=== PATIENT | female | born 1995 | race Caucasian/White ===

== ENCOUNTER 2017-02-11 20:42 | Emergency (ER) | payer OTHER ==
--- NOTE | 2017-02-11 21:27 | ER Document Report ---
ED Medical Screen (RME) - General Stated Complaint: HEADACHE/EAR PAIN Notes: 21 yo female c/o headace and right ear pain x 3 days. frontal headache, throbbing pain. no fever. no neck pain. no relief with Tylenol. no hx/o similar headache. no recent illness. 29 wks pregant. G1. no related complaints OB - women's health Physical Exam - Vital signs Vitals: Temp Pulse Resp BP Pulse Ox 98.6 F 98 H 22 131/74 H 99 02/11/17 21:09 02/11/17 21:09 02/11/17 21:09 02/11/17 21:09 02/11/17 21:09 Course - Vital Signs Vital signs: Temp Pulse Resp BP Pulse Ox 98.6 F 98 H 22 131/74 H 99 02/11/17 21:09 02/11/17 21:09 02/11/17 21:09 02/11/17 21:09 02/11/17 21:09
[2017-02-11 21:50] LABS: APPEARANCE,URINE CLEAR; BILIRUBIN,URINE NEGATIVE (NEGATIVE); GLUCOSE, URINE NEGATIVE (NEGATIVE); KETONES,URINE NEGATIVE (NEGATIVE); LEUKOCYTE ESTERASE,URINE NEGATIVE (NEGATIVE); NITRITE,URINE NEGATIVE (NEGATIVE); PROTEIN,URINE NEGATIVE (NEGATIVE); URINE SPECIFIC GRAVITY 1.004; UROBILINOGEN,URINE NEGATIVE mg/dL (<2.0)
--- NOTE | 2017-02-12 01:33 | ER Document Report ---
ED Headache - General Time seen by provider: 01:35 Mode of Arrival: Ambulatory Information source: Patient TRAVEL OUTSIDE OF THE [place] IN LAST 30 DAYS: No - HPI Patient complains to provider of: Headache, Facial pain Onset: Other - see HPI note - General Chief Complaint: Headache >24 hrs old Stated Complaint: HEADACHE/EAR PAIN Notes: Patient is a 21 year old female presenting to the ED for a headache. Patient is 29 weeks . Patient states that her right ear has pain, throbbing, and pressure that is exacerbated with bending forward. Patient denies any trauma or injury to her head. Patient denies any drainage, sore throat, fever, chills, or cough. Patient denies any history of headaches. Patient has no known allergies. (FRANSISCA LE) - Related Data Allergies/Adverse Reactions: No Known Allergies Allergy (Unverified 02/11/17 21:26) Past Medical History - General Information source: Patient - Social History Smoking Status: Never Smoker Cigarette use (# per day): No Chew tobacco use (# tins/day): No Frequency of alcohol use: None Drug Abuse: None Family History: None Patient has suicidal ideation: No Patient has homicidal ideation: No Review of Systems - Review of Systems Constitutional: No symptoms reported EENT: See HPI, Ear pain Cardiovascular: No symptoms reported Respiratory: No symptoms reported Gastrointestinal: No symptoms reported Genitourinary: No symptoms reported Female Genitourinary: No symptoms reported Musculoskeletal: No symptoms reported Skin: No symptoms reported Hematologic/Lymphatic: No symptoms reported Neurological/Psychological: See HPI, Headaches -: Yes All other systems reviewed and negative Physical Exam - Vital signs Interpretation: Normal - General General appearance: Appears well, Alert In distress: Mild - HEENT Head: Normocephalic, Atraumatic Eyes: Normal Pupils: PERRL Mucous membranes: Moist - Respiratory Respiratory status: No respiratory distress Chest status: Nontender Breath sounds: Normal Chest palpation: Normal - Cardiovascular Rhythm: Regular Heart sounds: Normal auscultation Murmur: No - Abdominal Inspection: Normal Distension: No distension Bowel sounds: Normal Tenderness: Nontender Organomegaly: No organomegaly - Back Back: Normal, Nontender - Extremities General upper extremity: Normal inspection, Normal ROM, Normal strength General lower extremity: Normal inspection, Normal ROM, Normal strength - Neurological Neuro grossly intact: Yes Cognition: Normal Orientation: AAOx4 Curly Coma Scale Eye Opening: Spontaneous [place] Coma Scale Verbal: Oriented Curly Coma Scale Motor: Obeys Commands [place] Coma Scale Total: 15 Speech: Normal Sensory: Normal - Psychological Associated symptoms: Normal affect, Normal mood - Skin Skin Temperature: Warm Skin Moisture: Dry Course - Re-evaluation Re-evalutation: 02/12/17 02:02 I personally performed the services described in the documentation, reviewed and edited the documentation which was dictated to my scribe in my presence, and it accurately records my words and actions. Patient presents emergency department 29 weeks with a chief complaint of congestion. No headache no blurry vision no double vision or neck pain no difficulty breathing swallowing negative HEENT examination heart lungs abdomen soft nontender no acute findings she is never any abdominal pain vaginal bleeding or discharge. Told her very limited what we can use during Nasonex is a category C total Reglan start on some Claritin which is a category B but not the decongestant. She verbalizes understanding of this and doesn't want to take anything they could harm the baby. She is discharged prescription for Claritin follow primary care physician to 3 days and discussed reasons For ed return sooner ([employer]) - Vital Signs Vital signs: Temp Pulse Resp BP Pulse Ox 97.4 F 96 H 20 113/62 96 02/12/17 02:23 02/12/17 02:23 02/12/17 02:23 02/12/17 02:23 02/12/17 02:23 Discharge - Discharge Clinical Impression: Congestion of right ear Condition: Stable Disposition: HOME, SELF-CARE Additional Instructions: Upper Respiratory Illness/ congestion You have a viral infection of the respiratory passages -- a "cold." This common infection causes nasal congestion, drainage, and often sore throat and cough. It is caused by a virus and is highly contagious. The disease usually lasts a week or more, though the worst symptoms are usually over in 3 or 4 days. There is no "cure" for the viral infection -- it must run its course. If there is a complication, such as bacterial infection in the nose, sinuses, middle ear, or bronchial tubes, antibiotics may be required, but antibiotics won 't affect the virus. If you smoke, you should STOP!! Drink plenty of fluids. A humidifier may help. An expectorant medication or decongestant may make you more comfortable. Use acetaminophen or ibuprofen for fever or aches. See the doctor if fever persists over two or three days, if there is any significant worsening of your symptoms, or if you simply fail to improve as expected. Follow-up with your Primary care physician to 3 days return for increasing worsening or new symptoms Prescriptions: Loratadine [Claritin] 10 mg PO DAILY #12 capsule Scribe Documentation - Scribe Written by Naomy:: Fransisca Le 02/12/17 7:30 acting as scribe for :: Laron
[2017-02-12 02:24] VITALS: BP 113/62
== END 2017-02-12 02:24 | disposition home or self-care (01) ==
LOC: ER 20:42
DX: O26.893 Other specified pregnancy related conditions, third trimester (principal); H93.8X1 Other specified disorders of right ear; Z3A.29 29 weeks gestation of pregnancy
CPT/HCPCS: 81001; 99283

== ENCOUNTER 2017-05-03 00:29 | Outpatient (CLI) | payer OTHER ==
[2017-05-03 01:17] LABS: APPEARANCE,URINE CLEAR; BILIRUBIN,URINE NEGATIVE (NEGATIVE); GLUCOSE, URINE NEGATIVE (NEGATIVE); KETONES,URINE NEGATIVE (NEGATIVE); LEUKOCYTE ESTERASE,URINE NEGATIVE (NEGATIVE); NITRITE,URINE NEGATIVE (NEGATIVE); PROTEIN,URINE NEGATIVE (NEGATIVE); URINE SPECIFIC GRAVITY 1.002; UROBILINOGEN,URINE NEGATIVE mg/dL (<2.0)
[2017-05-03 01:23] LABS: AMNISURE (ROM) NEGATIVE (NEGATIVE)
[2017-05-03 02:11] LABS: URINE BARBITURATES SCREEN NEGATIVE; URINE METHADONE SCREEN NEGATIVE; URINE OPIATES LOW NEGATIVE; URINE PHENCYCLIDINE SCREEN NEGATIVE
== END 2017-05-03 02:59 | disposition home or self-care (01) ==
LOC: LC 00:29
PROVIDERS: ATTEND Obstetrics & Gynecology
PROC: 4A1HXCZ Monitoring of Products of Conception, Cardiac Rate, External Approach (ICD-10-PCS; principal; 2017-05-03)
DX: O47.1 False labor at or after 37 completed weeks of gestation (principal); Z3A.40 40 weeks gestation of pregnancy
CPT/HCPCS: 59025; 80307; 81005; 84112

== ENCOUNTER 2017-05-06 16:04 | Outpatient (CLI) | payer OTHER ==
--- NOTE | 2017-05-06 16:12 | Non Stress Test Report ---
Non Stress Test Datetime Report Generated by CPN: 05/06/2017 16:12 DEMOGRAPHIC Test Number: 1 EGA NST: 40.3 INDICATION Indication for Study: Ordered by Provider MONITORING Monitor Explained: Monitor Explained; Test Explained; Patient Verbalized Understanding Time on Monitor: 05/03/2017 01:17 Time off Monitor: 05/03/2017 02:50 NST Duration: 93 NST INTERVENTIONS NST Interventions: PO Hydration Physician Notified NST: blum BABY A: [id number] BABY A Movement : Present Contraction Frequency : irregular FHR Baseline : 120 Accelerations : 15X15 Decelerations : None Variability : Moderate 6-25bpm NST Review: Meets Criteria for Reactive NST NST Review and Verified By : Rose Marie Lazcano RN NST Results: Reactive NST REPORT Report Trigger: Send Report
--- NOTE | 2017-05-07 20:49 | Non Stress Test Report ---
Non Stress Test Datetime Report Generated by CPN: 05/07/2017 20:48 DEMOGRAPHIC EGA NST: 41.0 INDICATION Indication for Study: Ordered by Provider MONITORING Monitor Explained: Monitor Explained; Test Explained; Patient Verbalized Understanding Time on Monitor: 05/07/2017 16:16 Time off Monitor: 05/07/2017 16:39 NST Duration: 23 NST INTERVENTIONS NST Interventions: PO Hydration; Reposition Patient Physician Notified NST: C Faye CNM BABY A: [id number] BABY A Movement : Present Contraction Frequency : 0 FHR Baseline : 125 Accelerations : 15X15 Decelerations : None Variability : Moderate 6-25bpm NST Review: Meets Criteria for Reactive NST NST Review and Verified By : Jose Bermudez RNC NST Results: Reactive NST REPORT Report Trigger: Send Report
== END 2017-05-06 16:45 | disposition home or self-care (01) ==
LOC: LC 16:04
PROVIDERS: ATTEND Obstetrics & Gynecology
PROC: 4A1HXCZ Monitoring of Products of Conception, Cardiac Rate, External Approach (ICD-10-PCS; principal; 2017-05-06)
DX: O48.0 Post-term pregnancy (principal); Z3A.41 41 weeks gestation of pregnancy
CPT/HCPCS: 59025

== ENCOUNTER 2017-05-07 21:09 | Inpatient (IN) | payer OTHER ==
[2017-05-07] MEDS ORDERED: RINGERS SOLUTION,LACTATED 1,000 ML IV PRN (21:55)
[2017-05-07] MEDS ORDERED: OXYTOCIN/NORMAL SALINE 1,000 ML IV PRN (21:55)
[2017-05-07] MEDS ORDERED: RINGERS SOLUTION,LACTATED 300 ML IV ONE (21:55)
[2017-05-07] MEDS ORDERED: DINOPROSTONE 10 MG VAGINAL INSERT.SR PV PRN (21:55)
[2017-05-07] MEDS ORDERED: DINOPROSTONE 10 MG VAGINAL INSERT.SR ONE (22:15)
[2017-05-07 22:29] LABS: ABSOLUTE EOSINOPHILS # (AUTO) 0.1 10^3/uL (0.0-0.6); ABSOLUTE LYMPHOCYTES (AUTO) 1.8 10^3/uL (0.5-4.7); ABSOLUTE MONOCYTES (AUTO) 0.4 10^3/uL (0.1-1.4); ABSOLUTE NEUT (AUTO) 3.3 10^3/uL (1.7-8.2); BASOPHILS % (AUTO) 0.5 % (0-2); EOSINOPHILS % (AUTO) 1.2 % (0-6); HEMATOCRIT 34.2 % (36.0-47.0); HEMOGLOBIN 11.1 g/dL (12.0-15.5); HGB HCT DIFFERENCE -0.9; MEAN CORPUSCULAR HEMOGLOBIN 27.4 pg (27.0-33.4); MEAN CORPUSCULAR HGB CONC 32.6 g/dL (32.0-36.0); MEAN CORPUSCULAR VOLUME 84 fl (80-97); MONOCYTES % (AUTO) 7.5 % (3-13); RED BLOOD COUNT 4.07 10^6/uL (3.72-5.28); RED CELL DISTRIBUTION WIDTH 18.7 % (11.5-14.0); SEGMENTED NEUTROPHILS % (AUTO) 58.8 % (42-78); WHITE BLOOD COUNT 5.7 10^3/uL (4.0-10.5)
[2017-05-07 22:34] LABS: APPEARANCE,URINE SLIGHTLY-CLOUDY; BILIRUBIN,URINE NEGATIVE (NEGATIVE); GLUCOSE, URINE NEGATIVE (NEGATIVE); KETONES,URINE NEGATIVE (NEGATIVE); LEUKOCYTE ESTERASE,URINE LARGE (NEGATIVE); NITRITE,URINE NEGATIVE (NEGATIVE); PROTEIN,URINE NEGATIVE (NEGATIVE); URINE SPECIFIC GRAVITY 1.012; UROBILINOGEN,URINE NEGATIVE mg/dL (<2.0)
[2017-05-07 22:53] LABS: URINE BARBITURATES SCREEN NEGATIVE; URINE METHADONE SCREEN NEGATIVE; URINE OPIATES LOW NEGATIVE; URINE PHENCYCLIDINE SCREEN NEGATIVE
[2017-05-08] MEDS ORDERED: OXYTOCIN/NORMAL SALINE 20 UNIT/1,000 ML RTUINJ ONE (11:01)
[2017-05-08] MEDS ORDERED: LIDOCAINE 1% INJ-PF (10 MG/ML) 30 ML SDV ONE (11:01)
[2017-05-08] MEDS ORDERED: MISOPROSTOL 0.2 MG TABLET ONE (11:01)
[2017-05-08] MEDS ORDERED: NALBUPHINE HCL INJ 10 MG/1 ML AMPULE ONE (13:26)
[2017-05-08] MEDS ORDERED: EPHEDRINE SULFATE INJ 50 MG/1 ML AMPULE ONE (14:45)
[2017-05-08] MEDS ORDERED: FENTANYL CITRATE INJ/PF 100 MCG/2 ML AMPUL ONE (14:45)
[2017-05-08] MEDS ORDERED: FENTANYL/BUPIVACAINE/NS/PF 200 MCG/100 ML RTUINJ EPI ONE ×2 (14:46→22:39)
[2017-05-08] MEDS ORDERED: BUPIVACAINE HCL 0.25 % INJ/PF (2.5 MG/1 ML) 30 ML VIAL ONE (14:46)
[2017-05-08] MEDS ORDERED: PHENYLEPHRINE HCL INJ/PF 10 MG/1 ML SDV ONE (14:46)
--- NOTE | 2017-05-08 14:49 | L&D Progress Notes ---
PROGRESS NOTES Datetime Report Generated by CPN: 05/08/2017 14:49 PROGRESS NOTE Impression: Reassuring Heart Rate Procedures: Scalp Electrode Plan: Induction Comment: Uncomfortable after nubabin would like epidural. small change in SVE Continue pitocin May have epidural. VAGINAL EXAM Dilatation: 3 Dilatation: 2 Effacement: 80 Effacement: 50 Station: 0 Station: -3 Contractions: irregular MEMBRANES Membranes: Ruptured Membranes: Intact Amniotic Fluid Color: Clear FETUS A FHR - Baseline: 120 Monitoring: External US Variability: Moderate 6-25bpm Accelerations: 15X15 Decelerations: None FHR Category: Category I : 41.1 SIGNATURE SIGNATURE: [id number] SIGNATURE: [id number] SIGNATURE: [id number] Assignment: Marisela Jackson MD Signature: with User ID: [email or web address] : with User ID: [email or web address]
--- NOTE | 2017-05-08 17:49 | L&D Progress Notes ---
PROGRESS NOTES Datetime Report Generated by CPN: 05/08/2017 17:49 PROGRESS NOTE Impression: Reassuring Heart Rate Procedures: Intrauterine Pressure Catheter; Sterile Vag Exam Plan: Continue Present Management; Induction Informed Consent Obtained: Vaginal Delivery Vital Signs : Reviewed Comment: Comfortable with epdiural IUPC placed without difficulty Pitocin at 20 mu Continue present mgmt VAGINAL EXAM Dilatation: 5 Effacement: 80 Station: -1 Contractions: 2-4 MEMBRANES Membranes: Ruptured Amniotic Fluid Color: Clear FETUS A FHR - Baseline: 125 Monitoring: External US Variability: Moderate 6-25bpm Accelerations: 15X15 Decelerations: None FHR Category: Category I FETUS C SIGNATURE: [id number];[id number] Assignment: Marisela Jackson MD Signature: with User ID: [email or web address] : with User ID: [email or web address]
[2017-05-08] MEDS ORDERED: DEXTROSE 5%-LACTATED RINGERS 1,000 ML IV PRN (20:49)
[2017-05-08] MEDS ORDERED: LIDOCAINE 2%/EPINEPHRINE INJ 20 ML VIAL ONE (22:39)
[2017-05-08] MEDS ORDERED: SODIUM BICARBONATE 8.4% INJ 50 MEQ/50 ML DISP.SYRIN ONE (22:39)
--- NOTE | 2017-05-08 22:50 | L&D Progress Notes ---
PROGRESS NOTES Datetime Report Generated by CPN: 05/08/2017 22:50 PROGRESS NOTE Impression: Normal Progression of Labor; Reassuring Heart Rate Procedures: Scalp Electrode Plan: Continue Present Management; Induction Informed Consent Obtained: Vaginal Delivery; Induction of Labor; Risks, Benefits and Alternatives Discussed Vital Signs : Reviewed; Within Normal Limits Comment: Decel likely due to descent. maternal position change and Pitocin discontinued and FSE placed with resolution of FHR. Continue to monitor. Restart pitocin and anticipate . VAGINAL EXAM Dilatation: 8 Effacement: 90 Station: 1 FETUS A FHR - Baseline: 135 Monitoring: Internal Scalp Electrode Variability: Moderate 6-25bpm Accelerations: 15X15 Decelerations: Variable FHR Category: Category II FETUS C SIGNATURE: [id number] Signature: with User ID: [email or web address]
[2017-05-09] MEDS ORDERED: TERBUTALINE SULFATE INJ/PF 1 MG/1 ML SDV ONE (01:44)
[2017-05-09] MEDS ORDERED: ACETAMINOPHEN 325 MG TABLET PO ONE (01:45)
[2017-05-09] MEDS ORDERED: AMPICILLIN SOD INJ 2 GM VIAL IV ONE (01:45)
[2017-05-09] MEDS ORDERED: GENTAMICIN SULFATE INJ 80 MG/2 ML VIAL IV ONE (01:48)
[2017-05-09] MEDS ORDERED: ACETAMINOPHEN 325 MG TABLET ONE (01:51)
[2017-05-09] MEDS ORDERED: AMPICILLIN SOD INJ 2 GM VIAL ONE (03:08)
[2017-05-09] MEDS ORDERED: GENTAMICIN SULFATE INJ 80 MG/2 ML VIAL ONE (03:08)
[2017-05-09] MEDS ORDERED: OXYTOCIN/NORMAL SALINE 20 UNIT/1,000 ML RTUINJ ONE (04:57)
[2017-05-09] MEDS ORDERED: ACETAMINOPHEN WITH CODEINE #3 TABLET PO PRN ×2 (04:59)
[2017-05-09] MEDS ORDERED: GLYCERIN/WITCH HAZEL LEAF 1 EACH MED..PAD TP PRN (04:59)
[2017-05-09] MEDS ORDERED: DIPH/PERTUSS(ACELL)/TETANUS VAC/PF 0.5 ML SYR (>=10YO) IM PRN (04:59)
[2017-05-09] MEDS ORDERED: DIPHENHYDRAMINE HCL 25 MG CAPSULE PO PRN (04:59)
[2017-05-09] MEDS ORDERED: PROMETHAZINE HCL INJ 25 MG/1 ML VIAL IV PRN (04:59)
[2017-05-09] MEDS ORDERED: NA PHOS,M-B/NA PHOS,DI-BA (ADULT) 133 ML ENEMA PR PRN (04:59)
[2017-05-09] MEDS ORDERED: DIBUCAINE 1% OINTMENT 28 GM TP PRN (04:59)
[2017-05-09] MEDS ORDERED: MEASLES,MUMPS&RUBELLA VACC/PF 0.5 ML VIAL SUBCUT PRN (04:59)
[2017-05-09] MEDS ORDERED: ZOLPIDEM TARTRATE 5 MG TABLET PO PRN (04:59)
[2017-05-09] MEDS ORDERED: PSEUDOEPHEDRINE HCL 30 MG TABLET PO PRN (04:59)
[2017-05-09] MEDS ORDERED: OXYTOCIN/NORMAL SALINE 1,000 ML IV PRN (04:59)
[2017-05-09] MEDS ORDERED: PROMETHAZINE HCL 25 MG TABLET PO PRN (04:59)
[2017-05-09] MEDS ORDERED: BENZOCAINE/MENTHOL AEROSOL SPRAY 56 ML TOP PRN (04:59)
[2017-05-09] MEDS ORDERED: MAGNESIUM HYDROXIDE SUSP 30 ML UDCUP PO PRN (04:59)
[2017-05-09] MEDS ORDERED: ACETAMINOPHEN 650 MG SUPP.RECT PR PRN (04:59)
[2017-05-09] MEDS ORDERED: PROMETHAZINE HCL 25 MG SUPP.RECT PR PRN (04:59)
--- NOTE | 2017-05-09 05:44 | Delivery Summary ---
Del Sum A-C Datetime Report Generated by CPN: 05/09/2017 05:43 DELIVERY PERSONNEL DELIVERY PERSONNEL: [id number] Delivery Doctor:: Marsiela Jackson MD Labor and Delivery Nurse:: Gracie Fajardo RNweight control engineer Nurse:: Janice Rodarte RN Nursery Nurse:: Peggy Schreiber RN Flight Crew Ordnanceman/SEED CLEANING MACHINE OPERATOR: Denise Gutierres ST MATERNAL INFORMATION Delivery Anesthesia: Epidural Medications After Delivery: Pitocin Bolus-Please Comment Meds After Delivery Comment: Pitocin 20 units/1000 mL NS 1000mcg cytotec IA Estimated Blood Loss (ml): 400 Maternal Complications: Chorioamnionitis Provider Comments: Dx with chorio prior to delivery and Amp/Gent ordered and given. VFI delivered in BETH presentation. Loose nuchal cord easily reduced. Shoulders and body delivered w/o difficulty. Cord doubly clamped and Cut. Placenta delivered intact spontaneously. FF at U but intermittent atony therefore 1000 mcg of misoprostol given. Good hemostasis post repair. APgars 8/9. Weight pending at the time of delivery. LABOR SUMMARY EDC: 04/30/2017 00:00 No. Babies in Womb: 1 Attempted: No Labor Anesthesia: Epidural LABOR INFORMATION Reason for Induction: Post Dates Onset of Labor: 05/08/2017 14:39 Complete Dilatation: 05/09/2017 03:31 Cervical Ripening Agents: Cervidil Oxytocin: Augmentation Group B Beta Strep: negative Antibiotics # of Doses: 0 Antibiotics Time of Last Dose: n/a Steroids Given: None Reason Steroids Not Administered: Not Applicable MEMBRANES Membranes Rupture Method: Artificial Rupture of Membranes: 05/08/2017 10:00 Length of Rupture (hr): 18.17 Amniotic Fluid Color: Clear Amniotic Fluid Amount: Small Amniotic Fluid Odor: Normal STAGES OF LABOR Stage 1 hr: 12 Stage 1 min: 52 Stage 2 hr: 0 Stage 2 min: 39 Stage 3 hr: 0 Stage 3 min: 4 Total Time in Labor hr: 13 Total Time in Labor min: 35 VAGINAL DELIVERY Episiotomy: None Laceration Extension: First Degree Laceration Type: Vaginal Laceration Repair: Yes Laceration Repair Note: Bilateral Labial and 1st degree midline laceration repaired with good hemostasis Sponge Count Correct: Yes Sharps Count Correct: Yes CSECTION DELIVERY Primary Indication: N/A Secondary Indication: N/A CSection Incidence: N/A Labor: N/A Elective: N/A CSection Incision: N/A BABY A INFORMATION Infant Delivery Date/Time: 05/09/2017 04:10 Method of Delivery: Vaginal Born in Route : No : N/A Forceps: N/A Vacuum Extraction: N/A Shoulder Dystocia : No PRESENTATION/POSITION BABY A Presentation: Cephalic Cephalic Presentation: Vertex Vertex Position: Occipital Anterior Breech Presentation: N/A PLACENTA INFORMATION BABY A Placenta Delivery Time : 05/09/2017 04:14 Placenta Method of Delivery: Spontaneous Placenta Status: Delivered SCORES BABY A Heart Rate 1 min: >100 bpm Resp Effort 1 min: Good Cry Reflex Irritability 1 min: Cough or Sneeze or Pulls Away Muscle Tone 1 min: Active Motion Color 1 min: Blue/Pale Resuscitation Effort 1 min: N/A SCORE 1 MIN: 8 Heart Rate 5 min: >100 bpm Resp Effort 5 min: Good Cry Reflex Irritability 5 min: Cough or Sneeze or Pulls Away Muscle Tone 5 min: Active Motion Color 5 min: Body [place], Extremities Blue SCORE 5 MIN: 9 INFANT INFORMATION BABY A Gestational Age at Delivery: 41.2 Gestational Status: Late Term- 41- 41.6 Weeks Infant Outcome : Liveborn Infant Condition : Stable Infant Sex: Female IDENTIFICATION BABY A Infant Verification Date/Time: 05/09/2017 04:19 ID Band Number: [id number] Mother's Name Verified: Yes Infant RN Verifying : KFermin Acostaco, RN Additional Verifying Personnel: Chacho Fajardo RN WEIGHT/LENGTH BABY A Birthweight (gm): 3300 Weight (lb): 7 Infant Weight (oz): 4 Infant Length (in): 20.00 Length (cm): 50.80 CORD INFORMATION BABY A No. Cord Vessels: 3 Nuchal Cord : Around Neck x1, Loose Cord Blood Taken: Yes-For Storage (Mom's Blood type +) Suction: Mouth; Nose ASSESSMENT BABY A Complications: Multiple Late Decels; Multiple Variable Decels; Other Infant Complications- Other: Prolonged decels, loose nuchal x1 Physical Findings at Delivery: Puncture Wound from Scalp Electrode Respirations: Appears Normal Skin to Skin: Yes Skin to Skin Time (min): 40 Pizza Delivery/ALS Called : No Care By: Jose Schreiber RN Transferred To: Remains with Mother SIGNATURES Signature: with User ID: [email or web address]
[2017-05-09] MEDS ORDERED: AMPICILLIN SOD INJ 1 GM VIAL IV SCH ×2 (08:00→15:00)
--- NOTE | 2017-05-09 08:26 | Admission Physical ---
Datetime Report Generated by CPN: 05/09/2017 08:26 CURRENT ADMISSION Chief Complaint: Scheduled Induction of Labor Indication for Induction: Post Dates Admit Plan: Admit to Unit; Initiate Labor Induction Protocol ALLERGIES Medication Allergies: No Medication Allergies: No Known Allergies (05/07/2017) Medication Allergies: No Known Allergies (05/06/2017) Medication Allergies: No Known Allergies (02/11/2017) Latex: No Latex Allergies Food Allergies: none Environmental Allergies: none OBSTETRICAL HISTORY EDC: 04/30/2017 00:00 : 1 Para: 0 Term: 0 : 0 SAB: 0 IAB: 0 Ectopic: 0 Livin Cesareans: 0 VBACs: 0 Multiple Births: 0 Gestational Diabetes: No Rh Sensitization: No Incompetent Cervix: No DENISA: No Infertility: No ART Treatment: No Uterine Anomaly: No IUGR: No Hx Previous C/S: No Macrosomia: No Hx Loss/Stillborn: No PIH: No Hx : No Placenta Previa/Abruption: No Depression/PP Depression: No PTL/PROM: No Post Hemorrhage: No Current Procedures: Ultrasound; NST Obstetrical History Comments: G1: Current SEE RECORDS Alcohol: No Marijuana : No Cocaine: No Other Illicit Drugs: No Cigarettes: Never Smoker. [id number] MEDICAL HISTORY Diabetes: No Blood Transfusion: No Pulmonary Disease (Asthma, TB): No Breast Disease: No Hypertension: No Tongue Carrier Surgery: No Heart Disease: No Hosp/Surgery: No Autoimmune Disorder: No Anesthetic Complications: No Kidney Disease: No Abnormal Pap Smear: No Neuro/Epilepsy: No Psychiatric Disorders: No Other Medical Diseases: No Hepatitis/Liver Disease: No Significant Family History: No Varicosities/Phlebitis: No Trauma/Violence : No Thyroid Dysfunction: No INFECTIOUS HISTORY Gonorrhea: No Genital Herpes: No Chlamydia: No Tuberculosis: No Syphilis: No Hepatitis: No HIV/AIDS Exposure: No Rash or Viral Illness: No HPV: No PHYSICAL EXAM General: Normal HEENT: Normal Neurologic: Normal Thyroid: Deferred Heart: Normal Lungs: Normal Breast: Deferred Back: Normal Abdomen: Normal Genitourinary Exam: Normal Extremities: Normal DTRs: Normal Pelvic Type: Adequate Vital Signs: Reviewed; Within Normal Limits VAGINAL EXAM Dilatation: 8 Dilatation: 5 Dilatation: 3 Dilatation: 2 Effacement: 90 Effacement: 80 Effacement: 80 Effacement: 50 Station: 1 Station: -1 Station: 0 Station: -3 Contraction Comments: 2-4 Contraction Comments: irregular MEMBRANES Membranes: Ruptured Membranes: Ruptured Membranes: Intact Amniotic Fluid Color: Clear Amniotic Fluid Color: Clear FETUS A EGA: 41.1 Monitoring: External US FHR- Baseline: 140 Variability: Moderate 6-25bpm Accelerations: 15X15 Decelerations: None FHR Category: Category I PLANS FOR LABOR AND DELIVERY Labor and Delivery: None; Cord Blood Banking Pain Management: Epidural Feeding Preference: Breast Benefit of Breast Feed Discussed: Yes Circumcision: N/A INFORMED CONSENT Informed Consent Obtained: Vaginal Delivery; Induction of Labor; Risks, Benefits and Alternatives Discussed Informed Consent Obtained: Vaginal Delivery Signature: with User ID: Gianluca Signature: with User ID: [email or web address] : with User ID: [email or web address]
[2017-05-09] MEDS ORDERED: GENTAMICIN SULFATE INJ 80 MG/2 ML VIAL IV SCH ×2 (10:00)
[2017-05-09] MEDS: SENNOSIDES/DOCUSATE 8.6-50 MG 1 EACH TABLET PO SCH (11:13)
[2017-05-09] MEDS: PRENATAL VITAMIN W-O CA NO5/FE FUMARATE/FA CAPSULE PO SCH (11:14)
[2017-05-09] MEDS: FAMOTIDINE 20 MG TABLET PO SCH ×2 (11:15→21:54)
[2017-05-09] MEDS: DOCUSATE SODIUM 100 MG CAPSULE PO SCH ×2 (11:15→18:13)
[2017-05-09] MEDS: FERROUS SULFATE 325 MG TABLET PO SCH ×2 (11:15→18:13)
[2017-05-09] MEDS: GENTAMICIN SULFATE IV SCH ×2 (13:55→21:55)
[2017-05-09] MEDS: WATER IV SCH ×2 (13:55→21:55)
[2017-05-09] MEDS: DEXTROSE 5% IV SCH ×2 (13:55→21:55)
[2017-05-09] MEDS: IBUPROFEN 800 MG TABLET PO SCH ×2 (14:34→21:54)
[2017-05-09] MEDS: AMPICILLIN SODIUM 1 GM in NORMAL SALINE 50 ML IV SCH ×2 (15:17→20:52)
[2017-05-10] MEDS: AMPICILLIN SODIUM 1 GM in NORMAL SALINE 50 ML IV SCH ×2 (02:41→09:11)
[2017-05-10] MEDS: IBUPROFEN 800 MG TABLET PO SCH ×3 (05:01→22:28)
[2017-05-10] MEDS: GENTAMICIN SULFATE IV SCH (05:02)
[2017-05-10] MEDS: DEXTROSE 5% IV SCH (05:02)
[2017-05-10] MEDS: WATER IV SCH (05:02)
[2017-05-10 08:38] LABS: HEMATOCRIT 28.3 % (36.0-47.0); HEMOGLOBIN 9.3 g/dL (12.0-15.5); HGB HCT DIFFERENCE -0.4; MEAN CORPUSCULAR HEMOGLOBIN 27.3 pg (27.0-33.4); MEAN CORPUSCULAR HGB CONC 32.9 g/dL (32.0-36.0); MEAN CORPUSCULAR VOLUME 83 fl (80-97); RED BLOOD COUNT 3.41 10^6/uL (3.72-5.28); RED CELL DISTRIBUTION WIDTH 19.1 % (11.5-14.0); WHITE BLOOD COUNT 8.2 10^3/uL (4.0-10.5)
--- NOTE | 2017-05-10 08:54 | PDOC PROGRESS REPORT ---
Subjective-OB Subjective: Post Delivery Day: 1 21 year old. Denies any needs at this time, resting, voiding without difficulty , tolerating diet, voiding without difficulty. Physical Exam (OB) Vital Signs: Temp Pulse Resp BP Pulse Ox 98.2 F 86 16 112/67 97 05/09/17 20:45 05/09/17 20:45 05/09/17 20:45 05/09/17 20:45 05/09/17 20:45 Intake & Output 05/09/17 05/10/17 05/11/17 06:59 06:59 06:59 Intake Total 780 Balance 780 - Lochia Lochia Amount: Scant < 10 ml Lochia Color: Rubra/Red - Abdomen Description: Soft Hernia Present: No Fundal Description: Firm, Midline Fundal Height: u/u - u/2 Objective-Diagnostic Laboratory: 05/10/17 08:23 05/10/17 08:23 WBC 8.2 RBC 3.41 L Hgb 9.3 L Hct 28.3 L MCV 83 MCH 27.3 MCHC 32.9 RDW 19.1 H Plt Count 145 L Assessment and Plan(PN) - Assessment and Plan (1) Vaginal delivery Is this a current diagnosis for this admission?: YesPlan: routine pp care anticipate d/c home - Time Spent with Patient Time with patient: Less than 15 minutes Critical Time spent with patient: Less than 15 minutes Medications reviewed and adjusted accordingly: Yes - Disposition Anticipated Discharge: Home Within: within 24 hours
[2017-05-10] MEDS: SENNOSIDES/DOCUSATE 8.6-50 MG 1 EACH TABLET PO SCH (09:12)
[2017-05-10] MEDS: FAMOTIDINE 20 MG TABLET PO SCH ×2 (09:12→22:27)
[2017-05-10] MEDS: DOCUSATE SODIUM 100 MG CAPSULE PO SCH ×2 (09:12→17:58)
[2017-05-10] MEDS: PRENATAL VITAMIN W-O CA NO5/FE FUMARATE/FA CAPSULE PO SCH (09:12)
[2017-05-10] MEDS: FERROUS SULFATE 325 MG TABLET PO SCH ×2 (09:12→17:58)
[2017-05-11 05:38] LABS: ABSOLUTE BASOPHILS # (AUTO) 0.1 10^3/uL (0.0-0.2); ABSOLUTE EOSINOPHILS # (AUTO) 0.2 10^3/uL (0.0-0.6); ABSOLUTE MONOCYTES (AUTO) 0.5 10^3/uL (0.1-1.4); ABSOLUTE NEUT (AUTO) 4.5 10^3/uL (1.7-8.2); BASOPHILS % (AUTO) 0.8 % (0-2); EOSINOPHILS % (AUTO) 2.5 % (0-6); HEMATOCRIT 30.6 % (36.0-47.0); HGB HCT DIFFERENCE -0.6; LYMPHOCYTES % (AUTO) 27.2 % (13-45); MEAN CORPUSCULAR HEMOGLOBIN 27.5 pg (27.0-33.4); MEAN CORPUSCULAR HGB CONC 32.5 g/dL (32.0-36.0); MEAN CORPUSCULAR VOLUME 84 fl (80-97); MONOCYTES % (AUTO) 6.9 % (3-13); RED BLOOD COUNT 3.63 10^6/uL (3.72-5.28); RED CELL DISTRIBUTION WIDTH 19.2 % (11.5-14.0); SEGMENTED NEUTROPHILS % (AUTO) 62.6 % (42-78); WHITE BLOOD COUNT 7.2 10^3/uL (4.0-10.5)
[2017-05-11] MEDS: IBUPROFEN 800 MG TABLET PO SCH (06:21)
[2017-05-11] MEDS: FERROUS SULFATE 325 MG TABLET PO SCH (10:24)
[2017-05-11] MEDS: DOCUSATE SODIUM 100 MG CAPSULE PO SCH (10:25)
[2017-05-11] MEDS: PRENATAL VITAMIN W-O CA NO5/FE FUMARATE/FA CAPSULE PO SCH (10:25)
[2017-05-11] MEDS: SENNOSIDES/DOCUSATE 8.6-50 MG 1 EACH TABLET PO SCH (10:25)
[2017-05-11] MEDS: FAMOTIDINE 20 MG TABLET PO SCH (10:26)
--- NOTE | 2017-05-11 10:38 | PDOC PROGRESS REPORT ---
Subjective-OB Subjective: Post Delivery Day: 21 year old. Denies any needs at this time Doing well, baby not being discharged for ? 2 days, scant bleeding, eating well , voiding, baby not being discharged Physical Exam (OB) Vital Signs: Temp Pulse Resp BP Pulse Ox 98.2 F 73 16 111/73 98 05/11/17 07:37 05/11/17 07:37 05/11/17 07:37 05/11/17 07:37 05/11/17 07:37 Intake & Output 05/10/17 05/11/17 05/12/17 06:59 06:59 06:59 Intake Total 780 2190 Balance 780 2190 - PIH/Pre-Eclampsia Clonus: Negative Headache: Absent Epigastric Pain: No Visual Changes: No - Lochia Lochia Amount: Scant < 10 ml Lochia Color: Rubra/Red - Abdomen Description: Soft Hernia Present: No Fundal Description: Firm, Midline Fundal Height: u/u - u/2 Objective-Diagnostic Laboratory: 05/11/17 05:30 05/11/17 05:30 WBC 7.2 RBC 3.63 L Hgb 10.0 L Hct 30.6 L MCV 84 MCH 27.5 MCHC 32.5 RDW 19.2 H Plt Count 170 Seg Neutrophils % 62.6 Lymphocytes % 27.2 Monocytes % 6.9 Eosinophils % 2.5 Basophils % 0.8 Absolute Neutrophils 4.5 Absolute Lymphocytes 2.0 Absolute Monocytes 0.5 Absolute Eosinophils 0.2 Absolute Basophils 0.1 Assessment and Plan(PN) - Assessment and Plan (1) Chorioamnionitis in third trimester Qualifiers: Fetus number: single or unspecified fetus Qualified Code(s): O41.1230 - Chorioamnionitis, third trimester, not applicable or unspecified Is this a current diagnosis for this admission?: Yes (2) Anemia Qualifiers: Anemia type: iron deficiency Is this a current diagnosis for this admission?: Yes (3) Vaginal delivery Is this a current diagnosis for this admission?: Yes - Time Spent with Patient Time with patient: Less than 15 minutes Medications reviewed and adjusted accordingly: Yes - Disposition Anticipated Discharge: Home Within: within 24 hours - home today
--- NOTE | 2017-05-11 10:43 | PDOC DISCHARGE SUMMARY ---
Final Diagnosis Discharge Date: 05/11/17 - Final Diagnosis (1) Chorioamnionitis in third trimester Is this a current diagnosis for this admission?: Yes (2) Anemia Is this a current diagnosis for this admission?: Yes (3) Vaginal delivery Is this a current diagnosis for this admission?: Yes Discharge Data - Discharge Medication Home Medications: Pnv No.122/Iron/Folic Acid [ Multi Tablet] 1 tab PO DAILY 05/06/17 Gestational Age: 41.2 Reason(s) for Admission: Induction of Labor Procedures: NST Intrapartum Procedure(s): Spontaneous Vaginal Delivery Intrapartum Procedure Note: chorio Complication(s): Laceration-Perineal, Laceration-Labial Laceration-Degree: 1st - Data Baby 1 Female at 1 minute: 8 at 5 minutes: 9 Weight: 3.289 kg Home with Mother: No Complications: Yes - Diagnosis Test Laboratory: Temp Pulse Resp BP Pulse Ox 98.2 F 73 16 111/73 98 05/11/17 07:37 05/11/17 07:37 05/11/17 07:37 05/11/17 07:37 05/11/17 07:37 05/07/17 05/07/17 05/10/17 22:00 22:00 08:23 RBC 4.07 3.41 L Hgb 11.1 L 9.3 L Hct 34.2 L 28.3 L Urine Opiates Screen NEGATIVE 05/11/17 05:30 RBC 3.63 L Hgb 10.0 L Hct 30.6 L Urine Opiates Screen - Discharge information/Instructions Discharge Activity: Activity As Tolerated, No Lifting Over 10 Pounds, No Lifting /Push/Pulling, Pelvic Rest Discharge Diet: As Tolerated, Regular Disposition: HOME, SELF-CARE Follow up with: [facility] in: 4, Weeks
[2017-05-11 12:14] VITALS: BP 104/61
== END 2017-05-11 12:46 | disposition home or self-care (01) | DRG 775 ==
LOC: LR 21:09 → 2N 05-09 08:24
PROVIDERS: ADMIT Obstetrics & Gynecology; ATTEND Obstetrics & Gynecology
PROC: 10907ZC Drainage of Amniotic Fluid, Therapeutic from Products of Conception, Via Natural or Artificial Opening (ICD-10-PCS; 2017-05-08)
PROC: 10E0XZZ Delivery of Products of Conception, External Approach (ICD-10-PCS; principal; 2017-05-09)
PROC: 0UQMXZZ Repair Vulva, External Approach (ICD-10-PCS; 2017-05-09)
PROC: 0HQ9XZZ Repair Perineum Skin, External Approach (ICD-10-PCS; 2017-05-09)
DX: O70.0 First degree perineal laceration during delivery (principal); Z3A.41 41 weeks gestation of pregnancy; Z37.0 Single live birth; O48.0 Post-term pregnancy; O99.02 Anemia complicating childbirth; D64.9 Anemia, unspecified
CPT/HCPCS: 36415; 80307; 81005; 85025; 85027; 86592; 86850; 86900; 86901; 94760; J0290; J1580; J2300; J2370; J2590; J3010; J3105; J3490